=== PATIENT | male | born 1995 | race Two or more races ===

== ENCOUNTER 2018-12-26 06:35 | Emergency (ER) | payer SELFPAY ==
--- NOTE | 2018-12-26 09:17 | RADIOLOGY REPORT (SQ) ---
EXAM DESCRIPTION: CHEST 2 VIEWS COMPLETED DATE/TIME: 12/26/2018 9:08 am REASON FOR STUDY: HTN COMPARISON: None. EXAM PARAMETERS: NUMBER OF VIEWS: two views TECHNIQUE: Digital Frontal and Lateral radiographic views of the chest acquired. RADIATION DOSE: NA LIMITATIONS: none FINDINGS: LUNGS AND PLEURA: No consolidation, pleural effusion or pneumothorax. MEDIASTINUM AND HILAR STRUCTURES: No mediastinal or hilar contour abnormality. HEART AND VASCULAR STRUCTURES: The cardiac silhouette and pulmonary vasculature are within normal correa its. BONES: No acute findings. HARDWARE: None. OTHER: No other finding. IMPRESSION: No acute cardiopulmonary process. TECHNICAL DOCUMENTATION: JOB ID: [id number] [employer]- All Rights Reserved Reading location - IP/workstation name: [email or web address]
--- NOTE | 2018-12-26 10:28 | ER Document Report ---
ED General - General Chief Complaint: Chest Pain Stated Complaint: CHEST PAIN,LEFT SIDE PAIN Time Seen by Provider: 12/26/18 08:37 TRAVEL OUTSIDE OF THE [place] 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 No sob. No leg pain or swelling. No comorbidities. Nonsmoker. Denies drug use. Associated symptoms: Other - left shoulder pain Exacerbated by: Denies Relieved by: Denies - Related Data Allergies/Adverse Reactions: peanut Allergy (Verified 12/26/18 06:50) Home Medications: No home medications Past Medical History - Social History Smoking Status: Never Smoker Chew tobacco use (# tins/day): No Frequency of alcohol use: Occasional Drug Abuse: None Family History: Reviewed & Not Pertinent, Other - no early CAD Patient has suicidal ideation: No Patient has homicidal ideation: No Review of Systems - Review of Systems Constitutional: No symptoms reported EENT: No symptoms reported Cardiovascular: No symptoms reported Respiratory: No symptoms reported Gastrointestinal: No symptoms reported Genitourinary: No symptoms reported Male Genitourinary: No symptoms reported Musculoskeletal: No symptoms reported Skin: No symptoms reported Hematologic/Lymphatic: No symptoms reported Neurological/Psychological: No symptoms reported Physical Exam - Vital signs Vitals: Temp Pulse Resp BP Pulse Ox 98 F 58 L 16 141/71 H 100 12/26/18 06:49 12/26/18 06:49 12/26/18 06:49 12/26/18 06:49 12/26/18 06:49 Interpretation: Normal - General General appearance: Appears well, Alert - HEENT Head: Normocephalic, Atraumatic Eyes: Normal Pupils: PERRL - Respiratory Respiratory status: No respiratory distress Chest status: Nontender Breath sounds: Normal Chest palpation: Normal - Cardiovascular Rhythm: Regular Heart sounds: Normal auscultation Murmur: No - Abdominal Inspection: Normal Distension: No distension Bowel sounds: Normal Tenderness: Nontender Organomegaly: No organomegaly - Back Back: Normal, Nontender - Extremities General upper extremity: Normal inspection, Nontender, Normal color, Normal ROM, Normal temperature General lower extremity: Normal inspection, Nontender, Normal color, Normal ROM, Normal temperature, Normal weight bearing. No: Imelda's sign - Neurological Neuro grossly intact: Yes Cognition: Normal Orientation: AAOx4 [place] Coma Scale Eye Opening: Spontaneous [place] Coma Scale Verbal: Oriented [place] Coma Scale Motor: Obeys Commands [place] Coma Scale Total: 15 Speech: Normal Motor strength normal: LUE, RUE, LLE, RLE Sensory: Normal - Psychological Associated symptoms: Normal affect, Normal mood - Skin Skin Temperature: Warm Skin Moisture: Dry Skin Color: Normal Course - Re-evaluation Re-evalutation: 12/26/18 15:54 MDM 23 year old with at rest chest pain. No fever and no concerning symptoms. Dog escaped the home recently and created a bunch of stress. He looks well, has a reassuring EKG and CXR. Discussed treatment with ibuprofen and tylenol and discussed return precautions. - Vital Signs Vital signs: Temp Pulse Resp BP Pulse Ox 98.2 F 58 L 18 123/61 98 12/26/18 10:34 12/26/18 06:49 12/26/18 10:34 12/26/18 10:34 12/26/18 10:33 - Diagnostic Test Radiology reviewed: Image reviewed, Reports reviewed - EKG Interpretation by Me EKG shows normal: Sinus rhythm Rate: Bradycardia Rhythm: NSR - Sinus Williams [address] elevation or depression my interpretation. Discharge - Discharge Clinical Impression: Chest pain Qualifiers: Chest pain type: unspecified Qualified Code(s): R07.9 - Chest pain, unspecified Condition: Good Disposition: HOME, SELF-CARE Instructions: Chest Wall Pain ([facility]), Chest Pain of Unclear Cause ([facility]) Additional Instructions: See your doctor in follow up. Tylenol or motrin as needed for pain. Return here for any problems or any concerns.
[2018-12-26 10:37] VITALS: BP 123/61
--- NOTE | 2018-12-26 16:19 | EKG REPORT ---
SEVERITY:- NORMAL ECG - SINUS RHYTHM : Confirmed by: Minoo Ryan MD 26-Dec-2018 16:18:41
== END 2018-12-26 10:38 | disposition home or self-care (01) ==
LOC: ER 06:35
DX: R07.9 Chest pain, unspecified (principal); M25.512 Pain in left shoulder; Z91.010 Allergy to peanuts
CPT/HCPCS: 71046; 93005; 93010; 99285